=== PATIENT | female | born 1955 | race Caucasian/White ===

== ENCOUNTER 2024-10-13 10:14 | Inpatient (IN) ==
[2024-10-13] MEDS: NOZIN NASAL SANITIZER TP ONE (10:56)
[2024-10-13] MEDS ORDERED: PRECEDEX INJ VIAL ONE ×2 (11:02→11:55)
[2024-10-13] MEDS ORDERED: KETAMINE HCL ONE (11:02)
[2024-10-13] MEDS ORDERED: ULTANE GAS IN ONE (11:02)
[2024-10-13] MEDS: LR 1,000 ML IV 1,000 ML IV ONE (11:30)
[2024-10-13 11:31] VITALS: BMI 37.1
[2024-10-13] MEDS: CLEOCIN 600 MG IV PREMIX 600 MG/50 ML BAG IV ONE (11:55)
[2024-10-13] MEDS ORDERED: SUPRANE ONE (11:55)
[2024-10-13] MEDS: MARCAINE 0.5% ONE (12:27)
[2024-10-13] MEDS: VISIPAQUE 100 ML ONE (12:27)
[2024-10-13] MEDS: HEPARIN SODIUM IN D5W 75,000 UNITS/1,500 ML BAG ONE (12:27)
[2024-10-13] MEDS ORDERED: BARHEMSYS INJ IVP PRN (12:55)
[2024-10-13] MEDS ORDERED: ZOFRAN INJ 4 MG VIAL IVP PRN (12:55)
[2024-10-13] MEDS ORDERED: DILAUDID INJ IVP PRN (12:55)
[2024-10-13] MEDS ORDERED: REGLAN INJ 10 MG VIAL IVP PRN (12:55)
[2024-10-13] MEDS: ACTIVASE CATHFLO 12 MG in NS 250 ML IV 228 ML IV SCH (13:00)
[2024-10-13] MEDS: ACTIVASE CATHFLO ONE (13:00)
[2024-10-13] MEDS: NS 1,000 ML IV 1,000 ML ONE (13:00)
--- NOTE | 2024-10-13 13:14 | OR.IMMED ---
IMMEDIATE POST-OP NOTE Immediate Post-Op Note Date of surgery/procedure: 10/13/24 Pre-Op Diagnosis: DVT proximal left SFV Post-Op Diagnosis: same Procedure: venogram left leg, IVUS veins left leg , place EKOS thrombolytic catheter left proximal femoral vein Description of Procedure: dictated Surgeon/Pump Servicer: Raiza Findings: DVT , non occlusive proximal left femoral vein Estimated Blood Loss: < 50 cc Complications: none Progress Notes: to CCU for thrombolysi
[2024-10-13] MEDS ORDERED: ACTIVASE CATHFLO 12 MG in NS 250 ML IV 228 ML INTRACATH ONE ×3 (13:16)
[2024-10-13] MEDS ORDERED: PERCOCET TAB 5/325 MG PO PRN (13:16)
[2024-10-13 15:20] LABS: BASOPHILS # (AUTO) 0.1 X10^3/uL (0.0-0.1); BASOPHILS % (AUTO) 1.3 % (0.2-1.0); EOSINOPHILS # (AUTO) 0.1 x10^3/uL (0.0-0.2); EOSINOPHILS % (AUTO) 2.4 % (0.9-2.9); HEMATOCRIT 40.5 % (36.0-47.0); HEMOGLOBIN 13.7 g/dL (12.0-16.0); LYMPHOCYTES # (AUTO) 1.7 X10^3/uL (1.3-2.9); LYMPHOCYTES % (AUTO) 35.5 % (21.0-51.0); MEAN CORPUSCULAR HEMOGLOBIN 33.1 pg (27.0-34.0); MEAN CORPUSCULAR HGB CONC 33.9 g/dL (33.0-35.0); MEAN CORPUSCULAR VOLUME 97.8 fL (80.0-100.0); MEAN PLATELET VOLUME 10.7 fL (7.4-11.0); MONOCYTES # (AUTO) 0.4 x10^3/uL (0.3-0.8); MONOCYTES % (AUTO) 8.4 % (0.0-13.0); NEUTROPHILS # (AUTO) 2.5 x10^3/uL (2.2-4.8); NEUTROPHILS % (AUTO) 52.4 % (42.0-75.0); PLATELET COUNT 151 X10^3/uL (150.0-450.0); RED BLOOD COUNT 4.15 X10^6/uL (3.5-5.4); RED CELL DISTRIBUTION WIDTH 13.6 % (11.6-16.5); WHITE BLOOD COUNT 4.7 X10^3/uL (3.6-10.0)
[2024-10-13 19:50] LABS: MEAN CORPUSCULAR VOLUME 97.5 fL (80.0-100.0)
[2024-10-13 19:55] LABS: BASOPHILS % (AUTO) 0.8 % (0.2-1.0); EOSINOPHILS # (AUTO) 0.1 x10^3/uL (0.0-0.2); HEMATOCRIT 40.6 % (36.0-47.0); HEMOGLOBIN 13.6 g/dL (12.0-16.0); LYMPHOCYTES # (AUTO) 1.8 X10^3/uL (1.3-2.9); LYMPHOCYTES % (AUTO) 32.5 % (21.0-51.0); MEAN CORPUSCULAR HEMOGLOBIN 32.7 pg (27.0-34.0); MEAN CORPUSCULAR HGB CONC 33.5 g/dL (33.0-35.0); MEAN PLATELET VOLUME 10.2 fL (7.4-11.0); MONOCYTES # (AUTO) 0.6 x10^3/uL (0.3-0.8); MONOCYTES % (AUTO) 9.9 % (0.0-13.0); NEUTROPHILS # (AUTO) 3.1 x10^3/uL (2.2-4.8); NEUTROPHILS % (AUTO) 54.8 % (42.0-75.0); PLATELET COUNT 155 X10^3/uL (150.0-450.0); RED BLOOD COUNT 4.16 X10^6/uL (3.5-5.4); RED CELL DISTRIBUTION WIDTH 13.7 % (11.6-16.5); WHITE BLOOD COUNT 5.6 X10^3/uL (3.6-10.0)
[2024-10-13] MEDS: ZOCOR TAB 20 MG PO SCH (20:30)
[2024-10-13] MEDS: LOPRESSOR TAB 50 MG PO SCH (20:30)
[2024-10-13] MEDS: ELIQUIS PO SCH (20:30)
[2024-10-14 02:01] LABS: BASOPHILS # (AUTO) 0.1 X10^3/uL (0.0-0.1); EOSINOPHILS # (AUTO) 0.2 x10^3/uL (0.0-0.2); EOSINOPHILS % (AUTO) 2.6 % (0.9-2.9); HEMATOCRIT 40.6 % (36.0-47.0); HEMOGLOBIN 13.7 g/dL (12.0-16.0); LYMPHOCYTES # (AUTO) 1.7 X10^3/uL (1.3-2.9); LYMPHOCYTES % (AUTO) 27.2 % (21.0-51.0); MEAN CORPUSCULAR HEMOGLOBIN 33.1 pg (27.0-34.0); MEAN CORPUSCULAR HGB CONC 33.7 g/dL (33.0-35.0); MEAN CORPUSCULAR VOLUME 98.2 fL (80.0-100.0); MEAN PLATELET VOLUME 10.3 fL (7.4-11.0); MONOCYTES # (AUTO) 0.7 x10^3/uL (0.3-0.8); MONOCYTES % (AUTO) 10.6 % (0.0-13.0); NEUTROPHILS # (AUTO) 3.7 x10^3/uL (2.2-4.8); NEUTROPHILS % (AUTO) 58.6 % (42.0-75.0); PLATELET COUNT 157 X10^3/uL (150.0-450.0); RED BLOOD COUNT 4.13 X10^6/uL (3.5-5.4); RED CELL DISTRIBUTION WIDTH 13.9 % (11.6-16.5); WHITE BLOOD COUNT 6.4 X10^3/uL (3.6-10.0)
[2024-10-14] MEDS: NS 500 ML IV 500 ML IV SCH ×2 (05:32→18:08)
[2024-10-14 08:16] LABS: HEMOGLOBIN 13.6 g/dL (12.0-16.0); MEAN CORPUSCULAR HGB CONC 33.7 g/dL (33.0-35.0); RED BLOOD COUNT 4.12 X10^6/uL (3.5-5.4); RED CELL DISTRIBUTION WIDTH 13.8 % (11.6-16.5); WHITE BLOOD COUNT 6.4 X10^3/uL (3.6-10.0)
[2024-10-14 08:19] LABS: BASOPHILS # (AUTO) 0.1 X10^3/uL (0.0-0.1); BASOPHILS % (AUTO) 0.8 % (0.2-1.0); EOSINOPHILS # (AUTO) 0.1 x10^3/uL (0.0-0.2); EOSINOPHILS % (AUTO) 2.3 % (0.9-2.9); HEMATOCRIT 40.3 % (36.0-47.0); LYMPHOCYTES # (AUTO) 1.8 X10^3/uL (1.3-2.9); LYMPHOCYTES % (AUTO) 28.3 % (21.0-51.0); MEAN CORPUSCULAR HEMOGLOBIN 32.9 pg (27.0-34.0); MEAN CORPUSCULAR VOLUME 97.8 fL (80.0-100.0); MEAN PLATELET VOLUME 10.4 fL (7.4-11.0); MONOCYTES # (AUTO) 0.6 x10^3/uL (0.3-0.8); MONOCYTES % (AUTO) 8.8 % (0.0-13.0); NEUTROPHILS # (AUTO) 3.8 x10^3/uL (2.2-4.8); NEUTROPHILS % (AUTO) 59.8 % (42.0-75.0); PLATELET COUNT 160 X10^3/uL (150.0-450.0)
[2024-10-14] MEDS: BENADRYL INJ 50 MG VIAL IVP PRN (09:12)
[2024-10-14] MEDS: ASPIRIN EC 81 MG PO SCH (09:15)
[2024-10-14] MEDS: PROTONIX TAB 40 MG PO SCH (09:15)
--- NOTE | 2024-10-14 11:17 | NOTE.SOAP ---
Soap Note Note for Day of Date of Exam: 10/14/24 Subjective Data Subjective Data: Had thrombolysis of the right femoral vein . did well , but c/o rash to the back with itching . Objective Data Temperature: 98.2 F Pulse Rate: 75 Respiratory Rate: 15 Blood Pressure: 129/68 O2 Sat by Pulse Oximetry: 94 Objective Data: left leg warm , catheter in place , mild rash to back with itching Assessment Assessment: DVT left femoral vein , thrombolysis Plan Plan: to return to OR tomorrow to repeat IVUS and make sure DVT resolved
[2024-10-14] MEDS ORDERED: NS 500 ML IV 500 ML IV ONE (13:14)
[2024-10-14] MEDS ORDERED: NS 1,000 ML IV 1,000 ML IV SCH (14:00)
[2024-10-14 14:11] LABS: BASOPHILS # (AUTO) 0.1 X10^3/uL (0.0-0.1); BASOPHILS % (AUTO) 1.3 % (0.2-1.0); EOSINOPHILS # (AUTO) 0.2 x10^3/uL (0.0-0.2); EOSINOPHILS % (AUTO) 2.5 % (0.9-2.9); HEMATOCRIT 39.4 % (36.0-47.0); HEMOGLOBIN 13.4 g/dL (12.0-16.0); LYMPHOCYTES # (AUTO) 2.2 X10^3/uL (1.3-2.9); LYMPHOCYTES % (AUTO) 31.2 % (21.0-51.0); MEAN CORPUSCULAR HEMOGLOBIN 33.3 pg (27.0-34.0); MEAN CORPUSCULAR HGB CONC 34.1 g/dL (33.0-35.0); MEAN CORPUSCULAR VOLUME 97.9 fL (80.0-100.0); MEAN PLATELET VOLUME 10.3 fL (7.4-11.0); MONOCYTES # (AUTO) 0.7 x10^3/uL (0.3-0.8); MONOCYTES % (AUTO) 10.5 % (0.0-13.0); NEUTROPHILS # (AUTO) 3.9 x10^3/uL (2.2-4.8); NEUTROPHILS % (AUTO) 54.5 % (42.0-75.0); PLATELET COUNT 163 X10^3/uL (150.0-450.0); RED BLOOD COUNT 4.02 X10^6/uL (3.5-5.4); RED CELL DISTRIBUTION WIDTH 13.9 % (11.6-16.5); WHITE BLOOD COUNT 7.1 X10^3/uL (3.6-10.0)
--- NOTE | 2024-10-14 15:38 | DR.OPNOTE ---
OP NOTE Pre-Op Diagnosis: DVT left femoral vein, non occlusive Post-Op Diagnosis: same Procedure Date Date Of Procedure: 10/13/24 Procedure: Proccedure: Left leg venogram, intravascular ultrasound left femoral vein and left iliac vein, placement of EKOS catheter for TPA infusion NARRARTIVE: The patient was taken to the operative suite and placed in a supine position. General endotracheal anesthesia induced and the patient placed in the prone position. The popliteal area of the left leg prepped and draped in sterile fashion. Timeout for the procedure obtained. Ultrasound used to identify the left popliteal vein which was compressible. Ultrasound used dee guide puncture of the left popliteal vein and a 0.012 inch guuide wire placed. Incision made over the guide wire with a number 11 knife blade and a micro sheath placed over the guide wire into the vein. Small wire removed and replaced with a 0.035 inch Advantage [place] wire. Small sheath removed and exchanged for a 10 [place] vascular sheath. Through the sheath venogram was marcos ed out showing filling defect of the proximal left femoral vein. The left iliac vein and stent appeared to be open . The proximal end of the stetn was narrowed but not significantly. Over the wire we placed the Opticross vascular probe and performed ultrasound of the stetn on the left side showing no problems however there was problem with feeling defect consistent with clot in the proximal left superficial femoral vein . Catheter threaded over the wire. Wire removed and the inner core of the EKOS catheter placed. This catheter was secured with a silk suture and dressing to the popliteal area. 3 milligrams of TPA infused through the drug port as a bolus and patietn started on a drip of 1 milligram per hour of TPA. Normal saline was placed through the coolant port at 30 ccper hour. Patient was taken to CCU in good condition after extubation. Type of Anesthesia: General Anesthetic w/ETT Findings: filling defect left proximal femoral vein , left iliac vein stent patent with no crush and no thrombus inside of iliac stents Type of Fluids Used:: Lactated Ringers Total Amount of Fluid Infused:: 400 cc EBL: < 50 cc Complications:: none Needle/Sponge Count:: correct Disposition/Condition: Pt. tolerated procedure without difficulty. Extubated in the OR and taken to PACU in stable condition.
[2024-10-14 20:00] LABS: BASOPHILS # (AUTO) 0.1 X10^3/uL (0.0-0.1); EOSINOPHILS # (AUTO) 0.2 x10^3/uL (0.0-0.2); EOSINOPHILS % (AUTO) 2.7 % (0.9-2.9); HEMATOCRIT 41.1 % (36.0-47.0); HEMOGLOBIN 13.9 g/dL (12.0-16.0); LYMPHOCYTES # (AUTO) 1.8 X10^3/uL (1.3-2.9); LYMPHOCYTES % (AUTO) 32.3 % (21.0-51.0); MEAN CORPUSCULAR HGB CONC 33.8 g/dL (33.0-35.0); MEAN CORPUSCULAR VOLUME 97.7 fL (80.0-100.0); MEAN PLATELET VOLUME 10.3 fL (7.4-11.0); MONOCYTES # (AUTO) 0.6 x10^3/uL (0.3-0.8); MONOCYTES % (AUTO) 10.3 % (0.0-13.0); NEUTROPHILS % (AUTO) 53.7 % (42.0-75.0); PLATELET COUNT 162 X10^3/uL (150.0-450.0); RED BLOOD COUNT 4.21 X10^6/uL (3.5-5.4); RED CELL DISTRIBUTION WIDTH 14.1 % (11.6-16.5); WHITE BLOOD COUNT 5.6 X10^3/uL (3.6-10.0)
[2024-10-14] MEDS: HIBICLENS WASH EXT ONE (20:51)
[2024-10-15 02:04] LABS: BASOPHILS % (AUTO) 0.7 % (0.2-1.0); EOSINOPHILS # (AUTO) 0.2 x10^3/uL (0.0-0.2); EOSINOPHILS % (AUTO) 2.9 % (0.9-2.9); HEMATOCRIT 40.1 % (36.0-47.0); HEMOGLOBIN 13.6 g/dL (12.0-16.0); LYMPHOCYTES # (AUTO) 2.1 X10^3/uL (1.3-2.9); LYMPHOCYTES % (AUTO) 33.1 % (21.0-51.0); MEAN CORPUSCULAR HEMOGLOBIN 33.1 pg (27.0-34.0); MEAN CORPUSCULAR HGB CONC 33.9 g/dL (33.0-35.0); MEAN CORPUSCULAR VOLUME 97.6 fL (80.0-100.0); MEAN PLATELET VOLUME 10.4 fL (7.4-11.0); MONOCYTES # (AUTO) 0.8 x10^3/uL (0.3-0.8); MONOCYTES % (AUTO) 12.1 % (0.0-13.0); NEUTROPHILS # (AUTO) 3.3 x10^3/uL (2.2-4.8); NEUTROPHILS % (AUTO) 51.2 % (42.0-75.0); PLATELET COUNT 159 X10^3/uL (150.0-450.0); RED BLOOD COUNT 4.11 X10^6/uL (3.5-5.4); RED CELL DISTRIBUTION WIDTH 14.1 % (11.6-16.5); WHITE BLOOD COUNT 6.5 X10^3/uL (3.6-10.0)
[2024-10-15 07:55] LABS: EOSINOPHILS # (AUTO) 0.2 x10^3/uL (0.0-0.2); HEMATOCRIT 41.4 % (36.0-47.0); MEAN CORPUSCULAR HGB CONC 33.8 g/dL (33.0-35.0); RED BLOOD COUNT 4.25 X10^6/uL (3.5-5.4)
[2024-10-15 08:00] LABS: BASOPHILS % (AUTO) 0.6 % (0.2-1.0); EOSINOPHILS % (AUTO) 2.6 % (0.9-2.9); LYMPHOCYTES # (AUTO) 2.1 X10^3/uL (1.3-2.9); MEAN CORPUSCULAR HEMOGLOBIN 32.9 pg (27.0-34.0); MEAN CORPUSCULAR VOLUME 97.3 fL (80.0-100.0); MEAN PLATELET VOLUME 10.7 fL (7.4-11.0); MONOCYTES # (AUTO) 0.7 x10^3/uL (0.3-0.8); MONOCYTES % (AUTO) 10.9 % (0.0-13.0); NEUTROPHILS # (AUTO) 3.8 x10^3/uL (2.2-4.8); NEUTROPHILS % (AUTO) 54.9 % (42.0-75.0); PLATELET COUNT 158 X10^3/uL (150.0-450.0); RED CELL DISTRIBUTION WIDTH 13.5 % (11.6-16.5); WHITE BLOOD COUNT 6.8 X10^3/uL (3.6-10.0)
[2024-10-15] MEDS ORDERED: ZOFRAN INJ 4 MG VIAL IVP PRN (09:52)
[2024-10-15] MEDS ORDERED: BENADRYL INJ 50 MG VIAL IVP PRN (09:52)
[2024-10-15] MEDS ORDERED: BARHEMSYS INJ IVP PRN (09:52)
[2024-10-15] MEDS ORDERED: DILAUDID INJ IVP PRN (09:52)
[2024-10-15] MEDS ORDERED: REGLAN INJ 10 MG VIAL IVP PRN (09:52)
[2024-10-15] MEDS: LR 1,000 ML IV 1,000 ML IV ONE (10:45)
[2024-10-15] MEDS: CLEOCIN 600 MG IV PREMIX 600 MG/50 ML BAG IV ONE (11:11)
[2024-10-15] MEDS: HEPARIN SODIUM IN D5W 75,000 UNITS/1,500 ML BAG ONE (11:41)
[2024-10-15] MEDS: VISIPAQUE 100 ML ONE (11:41)
[2024-10-15] MEDS: MARCAINE 0.5% ONE (11:41)
--- NOTE | 2024-10-15 13:25 | OR.IMMED ---
IMMEDIATE POST-OP NOTE Immediate Post-Op Note Date of surgery/procedure: 10/15/24 Pre-Op Diagnosis: dvt left femoral vein s/p directed thrmbolysis Post-Op Diagnosis: same Procedure: venogram left femoral vein, iVUS left femoral vein, Smart Claw thrombectomy left femoral vein Description of Procedure: dictated Surgeon/Smoking Tobacco Cutter Operator: Raiza Findings: as above Specimens Removed: clot from femoral vein following thrombolysis Estimated Blood Loss: minimal Complications: none Progress Notes: to Pacu , THEN TO CCU , D/C HOME LATER TODAY
[2024-10-15 13:39] LABS: BASOPHILS # (AUTO) 0.1 X10^3/uL (0.0-0.1); EOSINOPHILS # (AUTO) 0.2 x10^3/uL (0.0-0.2); EOSINOPHILS % (AUTO) 2.9 % (0.9-2.9); HEMATOCRIT 41.4 % (36.0-47.0); HEMOGLOBIN 14.1 g/dL (12.0-16.0); LYMPHOCYTES # (AUTO) 1.4 X10^3/uL (1.3-2.9); LYMPHOCYTES % (AUTO) 26.9 % (21.0-51.0); MEAN CORPUSCULAR HEMOGLOBIN 33.4 pg (27.0-34.0); MEAN CORPUSCULAR HGB CONC 34.1 g/dL (33.0-35.0); MEAN PLATELET VOLUME 10.6 fL (7.4-11.0); MONOCYTES # (AUTO) 0.4 x10^3/uL (0.3-0.8); MONOCYTES % (AUTO) 7.3 % (0.0-13.0); NEUTROPHILS # (AUTO) 3.3 x10^3/uL (2.2-4.8); NEUTROPHILS % (AUTO) 61.9 % (42.0-75.0); PLATELET COUNT 131 X10^3/uL (150.0-450.0); RED BLOOD COUNT 4.22 X10^6/uL (3.5-5.4); RED CELL DISTRIBUTION WIDTH 13.4 % (11.6-16.5); WHITE BLOOD COUNT 5.3 X10^3/uL (3.6-10.0)
--- NOTE | 2024-10-15 18:07 | W.DIS.FURT ---
Summary of Discharge Discharge Summary of Date Date of Exam: 10/15/24 Admission Date Date of Admission: 10/13/24 Admission Diagnosis Hospital Course: this is a 69 year old female status post bilateral iliac vein stenting for compression. She presented to the office last week with complaints of pain and swelling of the left leg and ultrasound consistent and deep venous thrombosis of the proximal left femoral vein. She was taken to the operating suite yesterday where she under went venogram and intravascular ultrasound confirming the clot in the proximal femoral vein and she had placement of an EKOS catheter in order to treat with TPA for 24 hours of thrombolysis. She was taken back to the OR today and underwent repeat venogram showied mild amount of clot but markedly improved. She underwent thrombectomy with the [employer] Bebeto device. She has done well and will be discharged home on her usual medications including Eliquis BID and daily aspirin. She will l follow up with me in 2 weeks. Vital Signs: Vital Signs (72 hours) 10/14/24 11:17 10/13/24 10:45 10/13/24 10:45 Temperature 98.2 F 97.9 F Pulse Rate 75 78 Respiratory Rate 15 18 Blood Pressure 129/68 142/66 O2 Sat by Pulse Oximetry 94 L 98 Oxygen Delivery Method Room Air Room Air Oxygen Flow Rate FIO2% 10/13/24 13:10 10/13/24 13:25 10/13/24 13:30 Temperature 97.0 F L Pulse Rate 69 66 72 Respiratory Rate 16 16 17 Blood Pressure 129/63 119/55 119/55 O2 Sat by Pulse Oximetry 90 L 93 L 91 L Oxygen Delivery Method Aerosol Face Tent Aerosol Face Tent Nasal Cannula Oxygen Flow Rate FIO2% 10/13/24 13:35 10/13/24 13:40 10/13/24 13:15 Temperature Pulse Rate 68 68 71 Respiratory Rate 16 16 16 Blood Pressure 113/59 112/57 117/58 O2 Sat by Pulse Oximetry 91 L 94 L 92 L Oxygen Delivery Method Nasal Cannula Nasal Cannula Aerosol Face Tent Oxygen Flow Rate FIO2% 10/13/24 13:20 10/13/24 14:45 10/13/24 14:01 Temperature 97.5 F L Pulse Rate 68 64 68 Respiratory Rate 16 15 16 Blood Pressure 114/55 136/66 O2 Sat by Pulse Oximetry 92 L 96 95 Oxygen Delivery Method Aerosol Face Tent Nasal Cannula Nasal Cannula Oxygen Flow Rate 2 2 FIO2% 10/13/24 14:15 10/13/24 14:15 10/13/24 14:30 Temperature Pulse Rate 67 Respiratory Rate 17 Blood Pressure 123/61 125/63 O2 Sat by Pulse Oximetry 96 Oxygen Delivery Method Nasal Cannula Nasal Cannula Nasal Cannula Oxygen Flow Rate 2 2 2 FIO2% 10/13/24 14:30 10/13/24 16:00 10/13/24 15:00 Temperature 97.6 F Pulse Rate 67 63 Respiratory Rate 18 18 Blood Pressure 125/66 O2 Sat by Pulse Oximetry 95 95 Oxygen Delivery Method Nasal Cannula Nasal Cannula Nasal Cannula Oxygen Flow Rate 2 2 2 FIO2% 28 10/13/24 16:00 10/13/24 17:00 10/13/24 18:00 Temperature 97.6 F 97.7 F Pulse Rate 68 68 75 Respiratory Rate 18 20 20 Blood Pressure 129/60 127/56 120/60 O2 Sat by Pulse Oximetry 98 98 98 Oxygen Delivery Method Nasal Cannula Nasal Cannula Nasal Cannula Oxygen Flow Rate 2 2 2 FIO2% 10/13/24 19:00 10/13/24 19:00 10/13/24 20:00 Temperature 98.1 F Pulse Rate 77 88 Respiratory Rate 23 16 Blood Pressure 124/69 124/65 O2 Sat by Pulse Oximetry 95 92 L Oxygen Delivery Method Room Air Room Air Room Air Oxygen Flow Rate FIO2% 10/13/24 21:00 10/13/24 22:00 10/13/24 23:00 Temperature Pulse Rate 79 73 67 Respiratory Rate 20 16 22 Blood Pressure 128/59 133/62 118/59 O2 Sat by Pulse Oximetry 92 L 93 L 92 L Oxygen Delivery Method Room Air Room Air Room Air Oxygen Flow Rate FIO2% 10/14/24 00:00 10/14/24 01:00 10/14/24 02:00 Temperature 98.5 F Pulse Rate 66 69 69 Respiratory Rate 15 23 24 Blood Pressure 118/56 122/58 122/59 O2 Sat by Pulse Oximetry 94 L 94 L 92 L Oxygen Delivery Method Room Air Room Air Room Air Oxygen Flow Rate FIO2% 10/13/24 21:00 10/14/24 03:00 10/14/24 04:00 Temperature 98.3 F Pulse Rate 72 75 Respiratory Rate 16 15 Blood Pressure 142/68 129/68 O2 Sat by Pulse Oximetry 95 94 L Oxygen Delivery Method Room Air Nasal Cannula Nasal Cannula Oxygen Flow Rate 2 2 FIO2% 10/14/24 05:00 10/14/24 06:00 10/14/24 08:41 Temperature Pulse Rate 69 68 Respiratory Rate 18 18 Blood Pressure 134/68 137/66 O2 Sat by Pulse Oximetry 93 L 94 L Oxygen Delivery Method Nasal Cannula Nasal Cannula Nasal Cannula Oxygen Flow Rate 2 2 2 FIO2% 28 10/14/24 04:30 10/14/24 04:45 10/14/24 05:00 Temperature Pulse Rate 69 68 Respiratory Rate 20 18 Blood Pressure 134/68 O2 Sat by Pulse Oximetry 92 L 93 L Oxygen Delivery Method Oxygen Flow Rate FIO2% 10/14/24 05:00 10/14/24 05:15 10/14/24 05:30 Temperature Pulse Rate 70 75 72 Respiratory Rate 13 20 21 Blood Pressure O2 Sat by Pulse Oximetry 94 L 95 94 L Oxygen Delivery Method Oxygen Flow Rate FIO2% 10/14/24 05:45 10/14/24 06:00 10/14/24 06:00 Temperature Pulse Rate 68 72 Respiratory Rate 17 18 Blood Pressure 137/64 O2 Sat by Pulse Oximetry 94 L 94 L Oxygen Delivery Method Oxygen Flow Rate FIO2% 10/14/24 06:15 10/14/24 06:30 10/14/24 06:45 Temperature Pulse Rate 68 70 69 Respiratory Rate 19 20 18 Blood Pressure O2 Sat by Pulse Oximetry 94 L 93 L 93 L Oxygen Delivery Method Oxygen Flow Rate FIO2% 10/14/24 07:00 10/14/24 07:01 10/14/24 07:01 Temperature Pulse Rate 74 78 Respiratory Rate 23 20 Blood Pressure 140/71 O2 Sat by Pulse Oximetry 94 L 94 L Oxygen Delivery Method Oxygen Flow Rate FIO2% 10/14/24 07:15 10/14/24 07:30 10/14/24 07:45 Temperature Pulse Rate 77 75 77 Respiratory Rate 18 22 Blood Pressure O2 Sat by Pulse Oximetry 94 L 96 97 Oxygen Delivery Method Nasal Cannula Oxygen Flow Rate 2 FIO2% 10/14/24 08:00 10/14/24 08:00 10/14/24 08:15 Temperature 97.9 F Pulse Rate 78 78 Respiratory Rate 16 17 Blood Pressure 138/64 O2 Sat by Pulse Oximetry 97 98 Oxygen Delivery Method Nasal Cannula Oxygen Flow Rate 2 FIO2% 10/14/24 08:30 10/14/24 08:45 10/14/24 09:00 Temperature Pulse Rate 86 85 82 Respiratory Rate 34 H 22 23 Blood Pressure O2 Sat by Pulse Oximetry 95 97 96 Oxygen Delivery Method Oxygen Flow Rate FIO2% 10/14/24 09:01 10/14/24 09:01 10/14/24 09:15 Temperature Pulse Rate 83 81 Respiratory Rate 23 25 H Blood Pressure 136/65 O2 Sat by Pulse Oximetry 96 98 Oxygen Delivery Method Oxygen Flow Rate FIO2% 10/14/24 09:30 10/14/24 09:45 10/14/24 10:00 Temperature Pulse Rate 78 78 Respiratory Rate 24 Blood Pressure 150/76 O2 Sat by Pulse Oximetry 97 96 Oxygen Delivery Method Nasal Cannula Oxygen Flow Rate 2 FIO2% 10/14/24 10:00 10/14/24 10:15 10/14/24 10:30 Temperature Pulse Rate 76 74 70 Respiratory Rate 17 17 Blood Pressure O2 Sat by Pulse Oximetry 96 96 96 Oxygen Delivery Method Oxygen Flow Rate FIO2% 10/14/24 10:45 10/14/24 11:00 10/14/24 11:00 Temperature Pulse Rate 66 68 Respiratory Rate 20 24 Blood Pressure 140/63 O2 Sat by Pulse Oximetry 95 95 Oxygen Delivery Method Oxygen Flow Rate FIO2% 10/14/24 11:15 10/14/24 11:30 10/14/24 11:45 Temperature Pulse Rate 72 67 72 Respiratory Rate 20 22 Blood Pressure O2 Sat by Pulse Oximetry 96 96 96 Oxygen Delivery Method Oxygen Flow Rate FIO2% 10/14/24 12:00 10/14/24 12:01 10/14/24 12:01 Temperature 98.5 F Pulse Rate 72 71 Respiratory Rate 20 20 Blood Pressure 129/58 O2 Sat by Pulse Oximetry 94 L 94 L Oxygen Delivery Method Oxygen Flow Rate FIO2% 10/14/24 12:15 10/14/24 12:30 10/14/24 12:45 Temperature Pulse Rate 71 66 69 Respiratory Rate 21 18 21 Blood Pressure O2 Sat by Pulse Oximetry 95 94 L 97 Oxygen Delivery Method Oxygen Flow Rate FIO2% 10/14/24 13:00 10/14/24 13:00 10/14/24 13:15 Temperature Pulse Rate 69 71 Respiratory Rate 24 20 Blood Pressure 144/65 O2 Sat by Pulse Oximetry 97 95 Oxygen Delivery Method Oxygen Flow Rate FIO2% 10/14/24 13:30 10/14/24 13:45 10/14/24 07:00 Temperature Pulse Rate 73 73 Respiratory Rate 21 22 Blood Pressure O2 Sat by Pulse Oximetry 97 96 Oxygen Delivery Method Room Air Oxygen Flow Rate FIO2% 10/14/24 14:00 10/14/24 14:01 10/14/24 14:01 Temperature Pulse Rate 73 72 Respiratory Rate 23 22 Blood Pressure 133/96 O2 Sat by Pulse Oximetry 96 98 Oxygen Delivery Method Oxygen Flow Rate FIO2% 10/14/24 14:15 10/14/24 14:30 10/14/24 14:45 Temperature Pulse Rate 69 74 70 Respiratory Rate 21 23 18 Blood Pressure O2 Sat by Pulse Oximetry 96 97 96 Oxygen Delivery Method Oxygen Flow Rate FIO2% 10/14/24 15:00 10/14/24 15:00 10/14/24 15:15 Temperature Pulse Rate 68 68 Respiratory Rate 21 18 Blood Pressure 140/63 O2 Sat by Pulse Oximetry 97 96 Oxygen Delivery Method Oxygen Flow Rate FIO2% 10/14/24 15:30 10/14/24 15:45 10/14/24 16:00 Temperature 98.2 F Pulse Rate 75 71 70 Respiratory Rate 21 25 H 21 Blood Pressure O2 Sat by Pulse Oximetry 98 97 95 Oxygen Delivery Method Oxygen Flow Rate FIO2% 10/14/24 16:01 10/14/24 16:01 10/14/24 16:15 Temperature Pulse Rate 71 68 Respiratory Rate 32 H 19 Blood Pressure 125/57 O2 Sat by Pulse Oximetry 96 94 L Oxygen Delivery Method Oxygen Flow Rate FIO2% 10/14/24 16:30 10/14/24 16:45 10/14/24 17:00 Temperature Pulse Rate 73 81 78 Respiratory Rate 22 35 H 25 H Blood Pressure O2 Sat by Pulse Oximetry 96 95 97 Oxygen Delivery Method Oxygen Flow Rate FIO2% 10/14/24 17:01 10/14/24 17:01 10/14/24 17:15 Temperature Pulse Rate 71 70 Respiratory Rate 23 20 Blood Pressure 169/77 O2 Sat by Pulse Oximetry 97 96 Oxygen Delivery Method Oxygen Flow Rate FIO2% 10/14/24 17:30 10/14/24 17:45 10/14/24 18:00 Temperature Pulse Rate 74 75 80 Respiratory Rate 28 H 25 H 21 Blood Pressure O2 Sat by Pulse Oximetry 99 98 97 Oxygen Delivery Method Oxygen Flow Rate FIO2% 10/14/24 18:01 10/14/24 18:01 10/14/24 19:00 Temperature Pulse Rate 80 Respiratory Rate 24 Blood Pressure 136/58 O2 Sat by Pulse Oximetry 79 L Oxygen Delivery Method Room Air Oxygen Flow Rate FIO2% 10/14/24 20:48 10/14/24 19:00 10/14/24 20:00 Temperature 98.6 F Pulse Rate 82 83 Respiratory Rate 18 24 Blood Pressure 132/80 143/65 O2 Sat by Pulse Oximetry 97 94 L Oxygen Delivery Method Nasal Cannula Nasal Cannula Nasal Cannula Oxygen Flow Rate 2 2 2 FIO2% 28 10/14/24 21:00 10/14/24 22:00 10/14/24 23:00 Temperature Pulse Rate 80 69 67 Respiratory Rate 20 32 H 24 Blood Pressure 140/78 140/71 157/74 O2 Sat by Pulse Oximetry 95 96 95 Oxygen Delivery Method Nasal Cannula Room Air Nasal Cannula Oxygen Flow Rate 2 2 FIO2% 10/15/24 00:00 10/15/24 01:00 10/15/24 02:00 Temperature 98.0 F Pulse Rate 67 85 72 Respiratory Rate 18 17 36 H Blood Pressure 146/65 161/72 146/67 O2 Sat by Pulse Oximetry 93 L 95 95 Oxygen Delivery Method Nasal Cannula Nasal Cannula Nasal Cannula Oxygen Flow Rate 2 2 2 FIO2% 10/15/24 03:00 10/15/24 04:00 10/15/24 05:00 Temperature 98.0 F Pulse Rate 73 69 76 Respiratory Rate 12 18 21 Blood Pressure 148/59 164/74 158/67 O2 Sat by Pulse Oximetry 97 94 L 92 L Oxygen Delivery Method Nasal Cannula Nasal Cannula Nasal Cannula Oxygen Flow Rate 2 2 2 FIO2% 10/15/24 06:00 10/14/24 23:00 10/14/24 23:15 Temperature Pulse Rate 77 64 Respiratory Rate 18 22 Blood Pressure 160/72 157/74 O2 Sat by Pulse Oximetry 92 L 96 Oxygen Delivery Method Room Air Oxygen Flow Rate FIO2% 10/14/24 23:30 10/14/24 23:45 10/15/24 00:00 Temperature Pulse Rate 67 64 64 Respiratory Rate 35 H 20 20 Blood Pressure O2 Sat by Pulse Oximetry 94 L 95 94 L Oxygen Delivery Method Oxygen Flow Rate FIO2% 10/15/24 00:01 10/15/24 00:01 10/15/24 00:15 Temperature Pulse Rate 66 67 Respiratory Rate 19 20 Blood Pressure 146/65 O2 Sat by Pulse Oximetry 95 93 L Oxygen Delivery Method Oxygen Flow Rate FIO2% 10/15/24 00:30 10/15/24 00:45 10/15/24 01:00 Temperature Pulse Rate 84 84 87 Respiratory Rate 18 20 16 Blood Pressure O2 Sat by Pulse Oximetry 92 L 93 L 95 Oxygen Delivery Method Oxygen Flow Rate FIO2% 10/15/24 01:00 10/15/24 01:15 10/15/24 01:30 Temperature Pulse Rate 90 70 Respiratory Rate 18 21 Blood Pressure 161/72 O2 Sat by Pulse Oximetry 97 94 L Oxygen Delivery Method Oxygen Flow Rate FIO2% 10/15/24 01:45 10/15/24 02:00 10/15/24 02:00 Temperature Pulse Rate 70 72 Respiratory Rate 16 20 Blood Pressure 146/67 O2 Sat by Pulse Oximetry 95 95 Oxygen Delivery Method Oxygen Flow Rate FIO2% 10/15/24 02:15 10/15/24 02:30 10/15/24 02:45 Temperature Pulse Rate 74 72 73 Respiratory Rate 22 19 19 Blood Pressure O2 Sat by Pulse Oximetry 95 94 L 96 Oxygen Delivery Method Oxygen Flow Rate FIO2% 10/15/24 03:00 10/15/24 03:01 10/15/24 03:01 Temperature Pulse Rate 72 75 Respiratory Rate 24 19 Blood Pressure 148/69 O2 Sat by Pulse Oximetry 95 95 Oxygen Delivery Method Oxygen Flow Rate FIO2% 10/15/24 03:15 10/15/24 03:30 10/15/24 03:45 Temperature Pulse Rate 71 73 70 Respiratory Rate 23 19 18 Blood Pressure O2 Sat by Pulse Oximetry 95 93 L 91 L Oxygen Delivery Method Oxygen Flow Rate FIO2% 10/15/24 04:00 10/15/24 04:01 10/15/24 04:01 Temperature Pulse Rate 75 76 Respiratory Rate 19 18 Blood Pressure 164/74 O2 Sat by Pulse Oximetry 92 L 92 L Oxygen Delivery Method Oxygen Flow Rate FIO2% 10/15/24 04:15 10/15/24 04:30 10/15/24 04:45 Temperature Pulse Rate 81 76 79 Respiratory Rate 26 H 20 17 Blood Pressure O2 Sat by Pulse Oximetry 95 95 92 L Oxygen Delivery Method Oxygen Flow Rate FIO2% 10/15/24 05:00 10/15/24 05:01 10/15/24 05:01 Temperature Pulse Rate 76 77 Respiratory Rate 19 19 Blood Pressure 158/67 O2 Sat by Pulse Oximetry 92 L 92 L Oxygen Delivery Method Oxygen Flow Rate FIO2% 10/15/24 05:15 10/15/24 05:30 10/15/24 05:45 Temperature Pulse Rate 75 79 74 Respiratory Rate 19 17 17 Blood Pressure O2 Sat by Pulse Oximetry 91 L 93 L 92 L Oxygen Delivery Method Oxygen Flow Rate FIO2% 10/15/24 06:00 10/15/24 06:01 10/15/24 06:01 Temperature Pulse Rate 73 77 Respiratory Rate 18 25 H Blood Pressure 160/72 O2 Sat by Pulse Oximetry 91 L 92 L Oxygen Delivery Method Oxygen Flow Rate FIO2% 10/15/24 06:15 10/15/24 06:30 10/15/24 06:45 Temperature Pulse Rate 77 78 75 Respiratory Rate 17 18 18 Blood Pressure O2 Sat by Pulse Oximetry 93 L 92 L 94 L Oxygen Delivery Method Oxygen Flow Rate FIO2% 10/15/24 07:00 10/15/24 07:01 10/15/24 07:01 Temperature Pulse Rate 75 76 Respiratory Rate 18 19 Blood Pressure 184/79 O2 Sat by Pulse Oximetry 92 L 93 L Oxygen Delivery Method Oxygen Flow Rate FIO2% 10/15/24 07:12 10/15/24 07:12 10/15/24 07:15 Temperature Pulse Rate 76 76 Respiratory Rate 20 18 Blood Pressure 155/67 O2 Sat by Pulse Oximetry 94 L 93 L Oxygen Delivery Method Oxygen Flow Rate FIO2% 10/15/24 08:09 10/15/24 09:14 10/15/24 07:00 Temperature 98.1 F Pulse Rate Respiratory Rate Blood Pressure O2 Sat by Pulse Oximetry Oxygen Delivery Method Room Air Room Air Oxygen Flow Rate 2 FIO2% 28 10/15/24 07:30 10/15/24 07:45 10/15/24 08:00 Temperature Pulse Rate 80 76 88 Respiratory Rate 23 26 H 20 Blood Pressure O2 Sat by Pulse Oximetry 96 93 L 94 L Oxygen Delivery Method Oxygen Flow Rate FIO2% 10/15/24 08:00 10/15/24 08:15 10/15/24 08:30 Temperature Pulse Rate 79 81 Respiratory Rate 19 Blood Pressure 155/70 O2 Sat by Pulse Oximetry 94 L 92 L Oxygen Delivery Method Oxygen Flow Rate FIO2% 10/15/24 08:45 10/15/24 09:00 10/15/24 09:01 Temperature Pulse Rate 81 78 77 Respiratory Rate 18 23 24 Blood Pressure O2 Sat by Pulse Oximetry 95 95 93 L Oxygen Delivery Method Oxygen Flow Rate FIO2% 10/15/24 09:01 10/15/24 09:15 10/15/24 09:30 Temperature Pulse Rate 76 77 Respiratory Rate 19 24 Blood Pressure 148/69 O2 Sat by Pulse Oximetry 93 L 94 L Oxygen Delivery Method Oxygen Flow Rate FIO2% 10/15/24 12:21 10/15/24 12:51 10/15/24 12:26 Temperature Pulse Rate 70 65 68 Respiratory Rate 17 18 17 Blood Pressure 120/58 111/58 114/56 O2 Sat by Pulse Oximetry 94 L 93 L 93 L Oxygen Delivery Method Aerosol Face Tent Nasal Cannula Aerosol Face Tent Oxygen Flow Rate FIO2% 10/15/24 12:31 10/15/24 12:36 10/15/24 12:41 Temperature Pulse Rate 64 63 65 Respiratory Rate 18 18 18 Blood Pressure 112/57 108/55 107/57 O2 Sat by Pulse Oximetry 95 95 96 Oxygen Delivery Method Aerosol Face Tent Nasal Cannula Nasal Cannula Oxygen Flow Rate FIO2% 10/15/24 12:46 10/15/24 09:45 10/15/24 10:00 Temperature Pulse Rate 68 78 79 Respiratory Rate 18 13 22 Blood Pressure 107/57 O2 Sat by Pulse Oximetry 93 L 96 93 L Oxygen Delivery Method Nasal Cannula Oxygen Flow Rate FIO2% 10/15/24 10:00 10/15/24 10:15 10/15/24 10:30 Temperature Pulse Rate 74 72 Respiratory Rate 20 28 H Blood Pressure 147/77 O2 Sat by Pulse Oximetry 95 94 L Oxygen Delivery Method Oxygen Flow Rate FIO2% 10/15/24 12:57 10/15/24 13:00 10/15/24 13:00 Temperature Pulse Rate 74 74 Respiratory Rate Blood Pressure 126/68 O2 Sat by Pulse Oximetry 87 L 92 L Oxygen Delivery Method Oxygen Flow Rate FIO2% 10/15/24 13:00 10/15/24 13:15 10/15/24 13:30 Temperature 97.8 F 97.8 F Pulse Rate 75 69 68 Respiratory Rate 15 16 16 Blood Pressure 126/68 126/66 133/67 O2 Sat by Pulse Oximetry 91 L 91 L 92 L Oxygen Delivery Method Nasal Cannula Nasal Cannula Nasal Cannula Oxygen Flow Rate 2 2 2 FIO2% 10/15/24 13:45 10/15/24 14:00 10/15/24 15:00 Temperature 97.9 F 97.9 F Pulse Rate 69 68 79 Respiratory Rate 15 16 21 Blood Pressure 133/68 130/68 139/71 O2 Sat by Pulse Oximetry 92 L 93 L 97 Oxygen Delivery Method Nasal Cannula Nasal Cannula Nasal Cannula Oxygen Flow Rate 2 2 2 FIO2% 10/15/24 16:00 10/15/24 17:00 10/15/24 17:58 Temperature 97.4 F L 97.4 F L Pulse Rate 73 77 73 Respiratory Rate 20 22 18 Blood Pressure 149/72 137/66 151/69 O2 Sat by Pulse Oximetry 92 L 94 L 96 Oxygen Delivery Method Nasal Cannula Nasal Cannula Room Air Oxygen Flow Rate 2 2 FIO2% Labs: Laboratory Last Values WBC 5.3 X10^3/uL (3.6-10.0) 10/15/24 13:26 RBC 4.22 X10^6/uL (3.5-5.4) 10/15/24 13:26 Hgb 14.1 g/dL (12.0-16.0) 10/15/24 13:26 Hct 41.4 % (36.0-47.0) 10/15/24 13:26 MCV 98.0 fL (80.0-100.0) 10/15/24 13:26 MCH 33.4 pg (27.0-34.0) 10/15/24 13:26 MCHC 34.1 g/dL (33.0-35.0) 10/15/24 13:26 RDW 13.4 % (11.6-16.5) 10/15/24 13:26 Plt Count 131 X10^3/uL (150.0-450.0) L 10/15/24 13:26 MPV 10.6 fL (7.4-11.0) 10/15/24 13:26 Neut % (Auto) 61.9 % (42.0-75.0) 10/15/24 13:26 Lymph % (Auto) 26.9 % (21.0-51.0) 10/15/24 13:26 [place] % (Auto) 7.3 % (0.0-13.0) 10/15/24 13:26 Eos % (Auto) 2.9 % (0.9-2.9) 10/15/24 13:26 Baso % (Auto) 1.0 % (0.2-1.0) 10/15/24 13:26 Neut # (Auto) 3.3 x10^3/uL (2.2-4.8) 10/15/24 13:26 Lymph # (Auto) 1.4 X10^3/uL (1.3-2.9) 10/15/24 13:26 [place] # (Auto) 0.4 x10^3/uL (0.3-0.8) 10/15/24 13:26 Eos # (Auto) 0.2 x10^3/uL (0.0-0.2) 10/15/24 13:26 Baso # (Auto) 0.1 X10^3/uL (0.0-0.1) 10/15/24 13:26 Absolute Nucleated RBC 0.2 /100WBC 10/15/24 13:26 APTT 104.3 SECONDS (22.9-36.5) H 10/15/24 13:26 PTT Comment - 10/15/24 13:26 Fibrinogen 333 mg/dL (239-489) 10/15/24 13:26 Reason For Visit: DVT LEFT FEMORAL VEIN Discharge Date Discharge Date: 10/15/24 Discharge Diagnosis Plan of Treatment: Continue with present treatment and follow up plan. Pt is to keep follow up appointment as instructed and take medications as ordered. Discharge Medications Discharge Medications: amoxicillin Allergy (Verified 08/27/24 07:35) hydrocodone Allergy (Verified 08/27/24 07:35) Penicillins Allergy (Verified 08/27/24 07:35) CONTINUE taking the following medications apixaban 5 mg tablet (Eliquis) 5 mg PO BID 10/13/24 [History] aspirin 81 mg tablet 81 mg PO DAILY 10/13/24 [History] metoprolol tartrate 50 mg tablet 50 mg PO BID 10/13/24 [History] omeprazole 40 mg capsule,delayed release 40 mg PO DAILY 10/13/24 [History] simvastatin 20 mg tablet 20 mg PO QPM 10/13/24 [History] Discharge Disposition Assessment: see hospital Discharge Plan Discharge Plan Hospital Course: this is a 69 year old female status post bilateral iliac vein stenting for c ompression. She presented to the office last week with complaints of pain and swelling of the left leg and ultrasound consistent and deep venous thrombosis of the proximal left femoral vein. She was taken to the operating suite yesterday where she under went venogram and intravascular ultrasound confirming the clot in the proximal femoral vein and she had placement of an EKOS catheter in order to treat with TPA for 24 hours of thrombolysis. She was taken back to the OR today and underwent repeat venogram showied mild amount of clot but markedly improved. She underwent thrombectomy with the [employer] Bebeto device. She has done well and will be discharged home on her usual medications including Eliquis BID and daily aspirin. She will l follow up with me in 2 weeks. Patient Disposition: 01 HOME, SELF-CARE Condition: Stable Health Concerns: Post Hospitalization: new medications and changes needed to prevent readmission or further decline. Pt educated and given instructions on all concerns. Care Plan Goals: Problem: Pain/Alteration in Comfort Goal: Improve/ Resolve Pain; Achieve Pain Tolerance Instructions: Take pain medications as prescribed. Contact your primary care provider if your pain is unrelieved or worsens. Follow up with primary care prov ider as directed. Plan of Treatment: Continue with present treatment and follow up plan. Pt is to keep follow up appointment as instructed and take medications as ordered. Assessment: see hospital Prescription drug monitoring program results: PDMP was not reviewed Prescriptions: Continued omeprazole 40 mg Capsule,Delayed Release(Dr/Ec) 40 mg PO DAILY simvastatin 20 mg tablet 20 mg PO QPM metoprolol tartrate 50 mg Tablet 50 mg PO BID aspirin 81 mg Tablet 81 mg PO DAILY Eliquis 5 mg tablet 5 mg PO BID Follow ups/Referrals Follow ups/Referrals: Thomas Eastman [STAFF PHYSICIAN] - 10/26/24 2:45 pm Instructions Instructions: How to Use Compression Stockings, Deep Vein Thrombosis, Venous Thromboembolism Prevention Stand Alone Forms: Excuse From Work or School, Find Help Web Site, Post Hospital Follow Up Care
[2024-10-15] MEDS ORDERED: ELIQUIS PO SCH (21:00)
--- NOTE | 2024-10-18 10:51 | DR.OPNOTE ---
OP NOTE Pre-Op Diagnosis: partial thrombosis left proximal femoral vein, s/p directed thrombolysis Post-Op Diagnosis: same Procedure Date Date Of Procedure: 10/15/24 Procedure: PROCERDURE : VENOGRAM LEFT FEMORAL VEIN, IVUS LEFT FEMORAL VEIN, DIRECTED THROMBECTOMY LEFT FEMORAL VEIN NARRATIVE : This patient was diagnosed with deep vein thrombosis of the left femoral vein. She has had bilateral iliac vein stenting in the past. Most recently she has been undergoing thrombolysis with TPA of this area of concern. She was taken back to the operating suite and placed in the supine position and general endotracheal anesthesia induced. Then she was placed in the prone position and the entire posterior aspect with the catheter in place of the popliteal fossa was prepped and draped in sterile fashion. The EKOS catheter was removed from its sheath. A 0.035 inch car was placed through the sheath and was placed all the way in to the left iliac stent . Using [place] catheter we exchanged this wire for a 0.018 inch wire and over this we placed the OPti - cross vascular probe and performed ultrasound showing still some defect against the wall of the proximal femoral vein. Over this wire we placed the Smart claw thromdectomy catheter and performed thrombectomy of this area. Repeateshowed excellent result. The sheath in the left popliteal fossil was removed and direct pressure held over this area for 10 minutes with a D- stat in place. Dressing applied and the patients extubated and taken to PACU in good condition. Type of Anesthesia: Local (0.5% Marcaine ) Anesthesia Comment: plus MAC Findings: partial thrombosis left proximal femoral vein Type of Fluids Used:: Lactated Ringers Urine output: 100 cc EBL: < 50 cc Complications:: none Needle/Sponge Count:: correct Disposition/Condition: Pt. tolerated procedure without difficulty. Taken to [facility] in stable condition.
--- NOTE | 2024-10-19 15:01 | NOTE.SOAP ---
Soap Note Note for Day of Date of Exam: 10/13/24 Subjective Data Subjective Data: Patient with known DVT of the left leg. She went placement of EKOS catheter and will be kept as an admission for continued thrombolysi and repeat Imaging studies Objective Data Temperature: 98.1 F Pulse Rate: 88 Respiratory Rate: 16 Blood Pressure: 124/65 O2 Sat by Pulse Oximetry: 92 Objective Data: Left popliteal vein with EKOS catheter in place, left foot warm Assessment Assessment: DVT left leg , for EKOS thrombolysis Plan Plan: Routine labs for thrombolysis
[2024-10-19 15:02] VITALS: BP 124/65; PULSE 88; RESP 16; TEMP 98.1; O2SAT 92
== END 2024-10-15 18:19 | disposition home or self-care (01) | DRG 271 ==
LOC: ICU 10:14
PROVIDERS: ADMIT Surgery; ATTEND Surgery